=== PATIENT | female | born 1990 | race African-American/Black ===

== ENCOUNTER 2016-10-15 18:34 | Emergency (ER) | payer OTHER, BC ==
[2016-10-15 18:52] VITALS: BP 129/78
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
[2016-10-15] MEDS ORDERED: Acetaminophen 325 MG Tab PO ONE (19:55)
--- NOTE | 2016-10-17 15:25 | CR ---
EXAM DATE: 10/15/16 PATIENT'S AGE: 25 Patient: EVANS LAGUERRE Facility: [place], [place] Site . Site : 1990 Study: XRay Extremity Left ANKLE [id number]/13/2017 7:06:38 PM Ordering Physician: Doctor Gómez Final Report: INDICATION: Pain. TECHNIQUE: Three views of the left ankle. COMPARISON: None. IMPRESSION: No fracture is identified. Ankle mortise is symmetric. No appreciable talar dome osteochondral defect. Dictated by Shiv Fournier MD @ 10/15/2016 8:00:58 PM Dictated by: Shiv Fournier MD @ 10/15/2016 20:01:05 (Electronic Signature) Report Signed by Proxy. MYRNA
== END 2016-10-15 20:19 | disposition home or self-care (01) ==
LOC: MW.ED 18:34
DX: M25.572 Pain in left ankle and joints of left foot (principal); W05.0XXA Fall from non-moving wheelchair, initial encounter
CPT/HCPCS: 73610; 99283; A9270; 99282